=== PATIENT | female | born 1975 | race Caucasian/White ===

== ENCOUNTER 2017-02-08 15:56 | Emergency (ER) | payer OTHER ==
[~2017-02-08] VITALS: Ht 167.6 cm; Wt 121.9 kg
[~2017-02-08 15:56] MED LIST: ALPR-475 PO; COLE1TAB2 PO; MAGN84TA6 PO; METO25TA91 PO; [UNRECOGNIZED DRUG - REMARK]
[2017-02-08 15:59] VITALS: BP 142/90
[2017-02-08] MEDS ORDERED: LIDOCAINE 1%-EPI 1:100K, 20ML SQ ONE (16:30)
[2017-02-08] MEDS ORDERED: LIDOCAINE 1%-EPI 1:100K, 20ML ONE (16:32)
== END 2017-02-08 17:32 | disposition home or self-care (01) ==
LOC: ED 17:06
DX: L05.01 Pilonidal cyst with abscess (principal); Z90.49 Acquired absence of other specified parts of digestive tract; Z88.6 Allergy status to analgesic agent; Z88.8 Allergy status to other drugs, medicaments and biological substances; Z87.891 Personal history of nicotine dependence
CPT/HCPCS: 10080; 99284

== ENCOUNTER 2017-04-27 11:38 | Emergency (ER) | payer OTHER ==
[~2017-04-27] VITALS: Ht 167.6 cm; Wt 118.1 kg
[2017-04-27] MEDS ORDERED: SODIUM CHLORIDE 0.9% 1,000 ML IV ONE (12:49)
[2017-04-27] MEDS ORDERED: ONDANSETRON 2MG/ML, 2ML IVPush ONE (13:00)
[2017-04-27] MEDS ORDERED: SODIUM CHLORIDE FLUSH 10ML SYR IVF ONE (13:00)
[2017-04-27] MEDS ORDERED: HYDROmorphone 1 MG/ML, 1ML IVPush PRN (13:00)
[2017-04-27] MEDS ORDERED: FAMOTIDINE 20 MG/2 ML IVP ONE (13:00)
[2017-04-27] MEDS ORDERED: SODIUM CHLORIDE 0.9% 1,000ML IVBOLUS ONE (13:00)
[2017-04-27] MEDS ORDERED: HYDROmorphone 1 MG/ML, 1ML ONE (13:04)
[2017-04-27] MEDS ORDERED: ONDANSETRON 2MG/ML, 2ML ONE (13:05)
[2017-04-27] MEDS ORDERED: FAMOTIDINE 20 MG/2 ML ONE (13:05)
[2017-04-27 13:12] LABS: ASPARTATE AMINO TRANSFERASE 13 U/L (15-37); BLOOD UREA NITROGEN 13 mg/dL (7-18)
[2017-04-27] MEDS ORDERED: PROMETHAZINE 25 MG/ML, 1ML ONE (14:02)
[2017-04-27] MEDS ORDERED: PROMETHAZINE 25 MG/ML, 1ML IM ONE (14:30)
[2017-04-27 15:36] VITALS: BP 114/58
== END 2017-04-27 15:39 | disposition home or self-care (01) ==
LOC: ED 14:56
DX: A08.4 Viral intestinal infection, unspecified (principal); Z87.891 Personal history of nicotine dependence; Z90.49 Acquired absence of other specified parts of digestive tract
CPT/HCPCS: 36415; 74022; 80053; 81001; 83690; 84703; 85025; 87086; 93005; 96361; 96372; 96374; 96375; 99285; J1170; J2405; J2550; J7030; S0028

== ENCOUNTER → 2018-03-21 | Outpatient (CLI) | payer OTHER ==
[~2018-03-21] MED LIST changes: +MULT-516 PO
== END | disposition home or self-care (01) ==
LOC: STAR 08:06
PROVIDERS: ATTEND Internal Medicine
DX: Z02.9 Encounter for administrative examinations, unspecified (principal)

== ENCOUNTER 2018-03-28 10:25 | Day surgery (SDC) | payer OTHER ==
[~2018-03-28] VITALS: Ht 167.6 cm; Wt 107.0 kg
[2018-03-28] MEDS ORDERED: LACTATED RINGERS 1,000 ML IV SCH (10:43)
[2018-03-28 11:05] LABS: HCG UR SG 1.032 (1.003-1.030)
[2018-03-28 11:10] VITALS: BP 112/79
[2018-03-28] MEDS ORDERED: FENTANYL PF 100 MCG/2ML ONE ×2 (13:16→13:30)
[2018-03-28] MEDS ORDERED: ONDANSETRON ODT 8 MG ONE (13:17)
[2018-03-28] MEDS ORDERED: MIDAZOLAM 1 MG/ML, 2ML ONE ×2 (13:17→13:30)
[2018-03-28] MEDS ORDERED: PROPOFOL 50 ML ONE (13:24)
[2018-03-28] MEDS ORDERED: CEFAZOLIN 1,000 MG ONE ×2 (13:42)
[2018-03-28] MEDS ORDERED: hydrALAzine 20 MG/ML, 1ML IV PRN (14:00)
[2018-03-28] MEDS ORDERED: LABETALOL 5MG/ML, 20ML IV PRN (14:00)
[2018-03-28] MEDS ORDERED: MEPERIDINE/PF 25MG/0.5ML IVPush PRN (14:00)
[2018-03-28] MEDS ORDERED: OXYcodone 5 MG/5 ML ORAL.SOL UDC PO PRN (14:00)
[2018-03-28] MEDS ORDERED: PROMETHAZINE 25 MG/ML, 1ML IV PRN (14:00)
[2018-03-28] MEDS ORDERED: ACETAMINOPHEN 325 MG TABLET PO PRN (14:00)
[2018-03-28] MEDS ORDERED: MORPHINE SULFATE 4 MG/ML, 1ML IVPush PRN (14:00)
[2018-03-28] MEDS ORDERED: LORazepam 2 MG/ML, 1ML IVPush PRN (14:00)
[2018-03-28] MEDS ORDERED: FENTANYL PF 100 MCG/2ML IV PRN (14:00)
== END 2018-03-28 15:00 ==
LOC: OUT 10:25
PROVIDERS: ATTEND Internal Medicine
DX: K57.30 Diverticulosis of large intestine without perforation or abscess without bleeding (principal); K64.4 Residual hemorrhoidal skin tags; K62.89 Other specified diseases of anus and rectum; F42.9 Obsessive-compulsive disorder, unspecified; K20.0 Eosinophilic esophagitis; E66.9 Obesity, unspecified; Z88.6 Allergy status to analgesic agent; Z88.8 Allergy status to other drugs, medicaments and biological substances; Z87.891 Personal history of nicotine dependence; Z98.890 Other specified postprocedural states
CPT/HCPCS: 45341; 81025; J0690; J2250; J2704; J3010; J7120

== ENCOUNTER 2018-05-22 06:53 | Emergency (ER) | payer OTHER ==
[~2018-05-22] VITALS: Ht 167.6 cm; Wt 109.6 kg
[2018-05-22] MEDS ORDERED: KETOROLAC 30 MG/1 ML IM ONE (07:30)
[2018-05-22] MEDS ORDERED: DIAZEPAM 5 MG TABLET PO ONE (07:30)
[2018-05-22] MEDS ORDERED: DIAZEPAM 5 MG TABLET ONE (07:44)
[2018-05-22] MEDS ORDERED: KETOROLAC 30 MG/1 ML ONE (07:44)
[2018-05-22] MEDS ORDERED: ONDANSETRON ODT 4 MG PO ONE (09:00)
[2018-05-22] MEDS ORDERED: HYDROmorphone 2 MG/ML, 1ML ONE (09:07)
[2018-05-22] MEDS ORDERED: CYCLOBENZAPRINE 10 MG TABLET ONE (09:07)
[2018-05-22] MEDS ORDERED: ONDANSETRON ODT 4 MG ONE (09:07)
[2018-05-22] MEDS: CYCLOBENZAPRINE 10 MG TABLET PO SCH ×2 (09:20→10:14)
[2018-05-22 10:15] VITALS: BP 125/73
[2018-05-22] MEDS ORDERED: HYDROmorphone 2 MG/ML, 1ML IM ONE (13:00)
== END 2018-05-22 10:17 | disposition home or self-care (01) ==
LOC: ED 07:45
DX: S39.012A Strain of muscle, fascia and tendon of lower back, initial encounter (principal); W01.0XXA Fall on same level from slipping, tripping and stumbling without subsequent striking against object, initial encounter; Y93.01 Activity, walking, marching and hiking; Y99.8 Other external cause status; Y92.89 Other specified places as the place of occurrence of the external cause
CPT/HCPCS: 72110; 96372; 99284; J1170; J1885; Q0162

== ENCOUNTER 2019-01-27 14:59 | Emergency (ER) | payer OTHER ==
[~2019-01-27] VITALS: Ht 167.6 cm; Wt 118.7 kg
[2019-01-27 15:08] VITALS: BP 134/94
[2019-01-27] MEDS ORDERED: HYDROcodone/APAP 5/325 TABLET PO PRN (15:30)
[2019-01-27] MEDS ORDERED: HYDROcodone/APAP 5/325 TABLET ONE (15:45)
== END 2019-01-27 16:48 | disposition home or self-care (01) ==
LOC: ED 15:26
DX: S63.522A Sprain of radiocarpal joint of left wrist, initial encounter (principal); S50.02XA Contusion of left elbow, initial encounter; S70.02XA Contusion of left hip, initial encounter; W01.0XXA Fall on same level from slipping, tripping and stumbling without subsequent striking against object, initial encounter; Y93.89 Activity, other specified; Y92.828 Other wilderness area as the place of occurrence of the external cause; Y99.8 Other external cause status
CPT/HCPCS: 29125; 99283

== ENCOUNTER → 2019-01-29 | Outpatient (CLI) | payer OTHER | END | disposition home or self-care (01) | LOC: CFH 15:03 | PROVIDERS: ATTEND Physician Assistant Surgical | DX: M48.061 Spinal stenosis, lumbar region without neurogenic claudication (principal); M48.07 Spinal stenosis, lumbosacral region; M47.817 Spondylosis without myelopathy or radiculopathy, lumbosacral region | CPT/HCPCS: 72148 ==

== ENCOUNTER 2019-03-26 13:33 | Emergency (ER) | payer OTHER ==
[~2019-03-26] VITALS: Ht 167.6 cm; Wt 120.2 kg
[2019-03-26 13:47] VITALS: BP 140/84
[2019-03-26] MEDS ORDERED: OXYcodone/APAP 5/325MG TABLET PO ONE (14:30)
[2019-03-26] MEDS ORDERED: KETOROLAC 30 MG/1 ML IM ONE (14:30)
[2019-03-26] MEDS ORDERED: OXYcodone/APAP 5/325MG TABLET ONE (14:33)
[2019-03-26] MEDS ORDERED: KETOROLAC 30 MG/1 ML ONE ×2 (14:33→14:34)
== END 2019-03-26 15:54 | disposition home or self-care (01) ==
LOC: ED 15:47
DX: S60.211A Contusion of right wrist, initial encounter (principal); W19.XXXA Unspecified fall, initial encounter; Y93.89 Activity, other specified; Y92.89 Other specified places as the place of occurrence of the external cause; Y99.8 Other external cause status
CPT/HCPCS: 29125; 73110; 73130; 96372; 99283; J1885

== ENCOUNTER 2019-09-04 08:30 | Emergency (ER) | payer OTHER ==
[~2019-09-04] VITALS: Ht 167.6 cm; Wt 117.3 kg
[~2019-09-04 08:30] MED LIST changes: -ALPR-475 PO; +ALPR0.5T7 PO
--- NOTE | 2019-09-04 08:49 | NUR ---
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
--- NOTE | 2019-09-04 08:50 | NUR ---
44 y/o FEMALE PRESENTS TO ED WITH C/O ALLERGIC REACTION. PER PT "I STARTED HAVING A REACTION ABOUT 1 AM . I TOOK 25MG OF BENADRYL. I TOOK 25 MG MORE AT 0815. IT HAS ONLY HAPPENED THREE TIMES. THIS TIME IT NORA FEELS LIKE IT IS IN MY THROAT." PT IN NO ACUTE DISTRESS. PT NOT SHORT OF BREATH WHEN SPEAKING TO RN. PT IS SPEAKING IN FULL SENTENCES. NO C/O N/V/D, TRAUMA, SYNCOPE, CP. PT PLACED ON CONT PULSE OX,NIBP.
--- NOTE | 2019-09-04 09:23 | NUR ---
PIV ESTABLISHED LABS OBTAINED. PT TOLERATED WITH NO COMPLICATIONS.
[2019-09-04] MEDS ORDERED: FAMOTIDINE 20 MG/2 ML ONE (09:26)
[2019-09-04] MEDS ORDERED: methylPREDNISolone SOD SUCC 125 MG/2 ML ONE (09:26)
[2019-09-04] MEDS ORDERED: EPINEPHRINE 1 MG/ML, 1ML ONE (09:26)
[2019-09-04] MEDS ORDERED: methylPREDNISolone SOD SUCC 125 MG/2 ML IVPush ONE (09:30)
[2019-09-04] MEDS ORDERED: SODIUM CHLORIDE FLUSH 10ML SYR IVF ONE (09:30)
[2019-09-04] MEDS ORDERED: FAMOTIDINE 20 MG/2 ML IVPush ONE (09:30)
[2019-09-04] MEDS ORDERED: EPINEPHRINE 1 MG/ML, 1ML SQ ONE (09:30)
[2019-09-04 09:50] VITALS: BP 133/81
--- NOTE | 2019-09-04 09:53 | NUR ---
BEDSIDE REPORT TO CELSA BALDERAS.
== END 2019-09-04 11:10 | disposition home or self-care (01) ==
LOC: ED 10:08
DX: T78.49XA Other allergy, initial encounter (principal); X58.XXXA Exposure to other specified factors, initial encounter
CPT/HCPCS: 96372; 96374; 96375; 99283; J0171; J2930; J3490

== ENCOUNTER 2019-10-29 15:32 | Emergency (ER) | payer OTHER ==
[~2019-10-29] VITALS: Ht 170.2 cm; Wt 118.1 kg
[2019-10-29 18:57] VITALS: BP 135/91
--- NOTE | 2019-10-29 19:00 | NUR ---
PT D/C BY EDPA FROM ED. Patient given discharge instructions and they have confirmed that they understand the instructions. Patient ambulatory with steady gait. Pt left with Rx, d/c paperwork, and all personal belongings.
== END 2019-10-29 19:03 | disposition home or self-care (01) ==
LOC: ED 18:52
DX: T78.40XA Allergy, unspecified, initial encounter (principal); Z87.11 Personal history of peptic ulcer disease; Z87.19 Personal history of other diseases of the digestive system; Z90.49 Acquired absence of other specified parts of digestive tract; X58.XXXA Exposure to other specified factors, initial encounter
CPT/HCPCS: 99283

== ENCOUNTER 2019-12-30 22:28 | Emergency (ER) | payer OTHER ==
[~2019-12-30] VITALS: Ht 170.2 cm; Wt 118.6 kg
[2019-12-30] MEDS ORDERED: methylPREDNISolone SOD SUCC 40 MG/ML ONE (23:13)
[2019-12-30] MEDS ORDERED: FAMOTIDINE 20 MG/2 ML ONE (23:13)
[2019-12-30] MEDS ORDERED: DIPHENHYDRAMINE 50 MG/ML, 1ML ONE (23:13)
[2019-12-30] MEDS ORDERED: methylPREDNISolone SOD SUCC 125 MG/2 ML IVPush ONE (23:30)
[2019-12-30] MEDS ORDERED: FAMOTIDINE 20 MG/2 ML IVPush ONE (23:30)
[2019-12-30] MEDS ORDERED: DIPHENHYDRAMINE 50 MG/ML, 1ML IVPush ONE (23:30)
--- NOTE | 2019-12-30 23:45 | NUR ---
RN to bedside, patient has already been assessed by provider and intravenous access was initiated by another RN. RN returned with medications. Patient agreeable. Medications adminstered, patient reported some feeling of nausea but no emesis at this time. Room lights were dimmed, door was closed to reduce stimulation. Patient provided with call light and educated electronic plotting system operator light system. Patient vitals remain within normal limits. Awaiting response to medications.
[2019-12-30 23:55] VITALS: BP 142/81
--- NOTE | 2019-12-31 00:27 | NUR ---
RN to bedside to update vitals, vital signs within normal limits (see vital signs flowsheet) patient reports improved swelling, feels better. Awaiting recheck from provider for disposition
== END 2019-12-31 01:28 ==
LOC: ED 12-31 01:22
DX: T78.3XXA Angioneurotic edema, initial encounter (principal); Z90.49 Acquired absence of other specified parts of digestive tract; Z90.89 Acquired absence of other organs; Z87.11 Personal history of peptic ulcer disease
CPT/HCPCS: 96374; 96375; 99284; J1200; J3490

== ENCOUNTER 2020-01-13 11:06 | Emergency (ER) | payer OTHER ==
[~2020-01-13] VITALS: Ht 170.2 cm; Wt 119.5 kg
[2020-01-13 11:12] VITALS: BP 179/103
[2020-01-13] MEDS ORDERED: FAMOTIDINE 20 MG TABLET ONE (11:47)
[2020-01-13] MEDS ORDERED: FAMOTIDINE 20 MG TABLET PO ONE (12:00)
== END 2020-01-13 12:23 | disposition home or self-care (01) ==
LOC: ED 12:15
DX: T78.40XA Allergy, unspecified, initial encounter (principal); Z90.49 Acquired absence of other specified parts of digestive tract; X58.XXXA Exposure to other specified factors, initial encounter
CPT/HCPCS: 99283; J7512

== ENCOUNTER 2020-04-28 01:50 | Emergency (ER) | payer OTHER ==
[~2020-04-28] VITALS: Ht 167.6 cm; Wt 120.0 kg
[2020-04-28] MEDS ORDERED: FAMOTIDINE 20 MG TABLET ONE (02:16)
[2020-04-28] MEDS ORDERED: EPINEPHRINE 1 MG/ML, 1ML ONE (02:16)
[2020-04-28] MEDS ORDERED: DIPHENHYDRAMINE 25 MG CAPSULE ONE (02:17)
[2020-04-28] MEDS ORDERED: LORazepam 1MG TABLET ONE (02:17)
[2020-04-28] MEDS ORDERED: LORazepam 1MG TABLET PO ONE (02:30)
[2020-04-28] MEDS ORDERED: DIPHENHYDRAMINE 25 MG CAPSULE PO ONE (02:30)
[2020-04-28] MEDS ORDERED: FAMOTIDINE 20 MG TABLET PO ONE (02:30)
[2020-04-28] MEDS ORDERED: EPINEPHRINE 1 MG/ML, 1ML SQ ONE (02:30)
--- NOTE | 2020-04-28 02:34 | NUR ---
PT AWOKE IN THE NIGHT WITH SWELLING TO THROAT AND MOUTH. PT STATED SHE HAS MULTIPLE FOOD ALLERGIES. PT ATTACHED TO ALL MONITORS AND MEDICATED FOR ALLERGIC REACTION PER EMAR. WILL MONITOR SYMPTOMS OF AIRWAY SWELLING. PT ANXIOUS AND PROVIDED REASSURANCE.
[2020-04-28 03:22] VITALS: BP 119/65
--- NOTE | 2020-04-28 03:22 | NUR ---
PT STATES IT STILL FEELS 'TIGHT' IN HER THROAT BUT SHE SAYS SWALLOWING IS EASIER.
--- NOTE | 2020-04-28 04:11 | NUR ---
PT REPORTS FEELING MUCH BETTER AND REQUESTING DISCHARGE. DISCUSSED DC INSTRUCTIONS WITH PT AND PT AMBULATED TO DC DESK.
== END 2020-04-28 04:13 | disposition home or self-care (01) ==
LOC: ED 04:12
DX: T78.1XXA Other adverse food reactions, not elsewhere classified, initial encounter (principal); T78.3XXA Angioneurotic edema, initial encounter; R00.0 Tachycardia, unspecified; F17.290 Nicotine dependence, other tobacco product, uncomplicated; E66.01 Morbid (severe) obesity due to excess calories; Z68.41 Body mass index [BMI] 40.0-44.9, adult; Z87.11 Personal history of peptic ulcer disease; Z90.49 Acquired absence of other specified parts of digestive tract; Z90.89 Acquired absence of other organs
CPT/HCPCS: 96372; 99284; 99406; J0171; J7512; Q0163

== ENCOUNTER 2020-05-10 20:26 | Emergency (ER) | payer OTHER ==
[~2020-05-10] VITALS: Ht 167.6 cm; Wt 121.3 kg
[2020-05-10] MEDS ORDERED: MAALOX/HYOSCYAMINE/LIDOCAINE 45 ML BTL ONE (20:48)
--- NOTE | 2020-05-10 20:54 | NUR ---
PT REPORT SPASMS IN HER ESOPH. HAPPENED LAST AND SHE SAID SHE WAS GIVEN A GI COCKTAIL AND IT WENT AWAY. PT PROVIDED GI COCKTAIL. WILL RECHECK IF IT WORKED.
[2020-05-10] MEDS ORDERED: MAALOX/HYOSCYAMINE/LIDOCAINE 45 ML BTL PO ONE (21:00)
[2020-05-10] MEDS ORDERED: LORazepam 2 MG/ML, 1ML ONE (21:16)
[2020-05-10] MEDS ORDERED: LORazepam 2 MG/ML, 1ML IM ONE (21:30)
--- NOTE | 2020-05-10 21:46 | NUR ---
PT REPORTS GI COCKTAIL DID NOT WORK. PT MEDICATED WITH ATIVAN
[2020-05-10] MEDS ORDERED: FAMOTIDINE 20 MG TABLET ONE (22:13)
[2020-05-10] MEDS ORDERED: DIPHENHYDRAMINE 25 MG CAPSULE ONE (22:13)
[2020-05-10] MEDS ORDERED: DIPHENHYDRAMINE 25 MG CAPSULE PO ONE (22:30)
[2020-05-10] MEDS ORDERED: FAMOTIDINE 20 MG TABLET PO ONE (22:30)
[2020-05-11] MEDS ORDERED: KETOROLAC 30 MG/1 ML IM ONE
[2020-05-11] MEDS ORDERED: KETOROLAC 60 MG/2 ML ONE
[2020-05-11 00:04] VITALS: BP 146/88
--- NOTE | 2020-05-11 00:51 | NUR ---
PT DENIED ALLERGY TO TORDOL AND NSAID
== END 2020-05-11 00:55 | disposition home or self-care (01) ==
LOC: ED 21:25
DX: K21.0 Gastro-esophageal reflux disease with esophagitis (principal); R94.31 Abnormal electrocardiogram [ECG] [EKG]; Z90.49 Acquired absence of other specified parts of digestive tract; Z90.89 Acquired absence of other organs; Z87.11 Personal history of peptic ulcer disease
CPT/HCPCS: 71045; 93005; 96372; 99284; J1885; J2060; Q0163

== ENCOUNTER 2020-09-08 20:08 | Emergency (ER) | payer OTHER ==
[~2020-09-08] VITALS: Ht 167.6 cm; Wt 126.0 kg
[2020-09-08 20:10] VITALS: BP 188/119
[2020-09-08] MEDS ORDERED: DIAZEPAM 5 MG TABLET PO ONE (20:30)
[2020-09-08] MEDS ORDERED: HYDROcodone/APAP 5/325 TABLET PO ONE (20:30)
[2020-09-08] MEDS ORDERED: HYDROcodone/APAP 5/325 TABLET ONE (20:55)
[2020-09-08] MEDS ORDERED: DIAZEPAM 5 MG TABLET ONE (20:55)
--- NOTE | 2020-09-08 20:59 | NUR ---
break rn - pt resting in koroma bed, pt a/o x4. pt medicated per emar
--- NOTE | 2020-09-08 20:59 | NUR ---
report of pt from terry osborne and assuming care of pt at this time.
--- NOTE | 2020-09-08 22:48 | NUR ---
PT D/C WITH D/C SUMMARY AND SCRIPTS. ALL QUESTIONS ANSWERED. PT AMBULATES TO REGISTRATION DESK WITH STEADY GAIT FOR D/C HOME. PT VS OBTAINED PRIOR TO D/C AND DISCUSSED WITH DR BRADEN PRIOR TO PT D/C. PT DENIES ANY OTHER NEEDS PERTAINING TO THIS VISIT.
== END 2020-09-08 22:52 | disposition home or self-care (01) ==
LOC: ED 21:14
DX: S39.012A Strain of muscle, fascia and tendon of lower back, initial encounter (principal); R00.0 Tachycardia, unspecified; K21.9 Gastro-esophageal reflux disease without esophagitis; Z90.49 Acquired absence of other specified parts of digestive tract; Z90.89 Acquired absence of other organs; Z87.11 Personal history of peptic ulcer disease; W18.30XA Fall on same level, unspecified, initial encounter; Y93.89 Activity, other specified; Y92.89 Other specified places as the place of occurrence of the external cause; Y99.8 Other external cause status
CPT/HCPCS: 72110; 99283

== ENCOUNTER 2020-10-27 09:48 | Emergency (ER) | payer OTHER ==
[~2020-10-27] VITALS: Ht 167.6 cm; Wt 127.7 kg
--- NOTE | 2020-10-27 10:08 | NUR ---
PT PRESENTS TO ED WITH SENSATION OF LUMP IN THROAT. DENIES PAIN. HX OF ANAPHYLAXIS, PT DENIES TROUBLE BREATHING, NO SWELLING IN TONGUE OR FACE, IN PAST TIMES OF ALLERGIC RXN. PT DENIES TAKING HER OMEPRAZOLE LAST NIGHT. DIFFICULTY GETTING IN TO SEE GI. SIDE RAILS UP ,CALL LIGHT IN REACH. AWAITING ORDERS.
[2020-10-27] MEDS ORDERED: FAMOTIDINE 20 MG TABLET ONE (10:14)
[2020-10-27] MEDS ORDERED: EPINEPHRINE 1 MG/ML, 1ML ONE (10:14)
[2020-10-27] MEDS ORDERED: DIPHENHYDRAMINE 25 MG CAPSULE ONE (10:15)
--- NOTE | 2020-10-27 10:19 | NUR ---
CALL PHARMACY TO VERIFY EPI DOSE WITH 1:1000 CONCENTRATION. DOSE VERIFIED BY
[2020-10-27] MEDS ORDERED: FAMOTIDINE 20 MG TABLET PO ONE (10:30)
[2020-10-27] MEDS ORDERED: EPINEPHRINE 1 MG/ML, 1ML SQ ONE (10:30)
[2020-10-27] MEDS ORDERED: DIPHENHYDRAMINE 25 MG CAPSULE PO ONE (10:30)
--- NOTE | 2020-10-27 10:34 | NUR ---
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 PT MEDICATED PER EMAR. NOW OBSERVING. NAD NOTED AT THIS TIME. PT REMAINS ANXIOUS, BUT COOPERATIVE. SIDE RAILS UP, CALL LIGHT IN REACH.
[2020-10-27 11:58] VITALS: BP 123/70
== END 2020-10-27 12:00 | disposition home or self-care (01) ==
LOC: ED 11:48
DX: K21.00 Gastro-esophageal reflux disease with esophagitis, without bleeding (principal); T78.3XXA Angioneurotic edema, initial encounter; E66.01 Morbid (severe) obesity due to excess calories; Z90.89 Acquired absence of other organs; Z87.11 Personal history of peptic ulcer disease; Z90.49 Acquired absence of other specified parts of digestive tract; Z68.42 Body mass index [BMI] 45.0-49.9, adult
CPT/HCPCS: 96372; 99284; J0171; J7512; Q0163

== ENCOUNTER 2021-01-15 08:45 | Emergency (ER) | payer OTHER ==
[~2021-01-15] VITALS: Ht 167.6 cm; Wt 126.0 kg
--- NOTE | 2021-01-15 09:03 | NUR ---
PT AMBULATORY TO ROOM. PT WENT TO BR, WAS NOT ABLE TO OBTAIN URINE SAMPLE. PT BACK TO ROOM, CHANGED INTO GOWN. PA AT BS
[2021-01-15] MEDS ORDERED: FAMOTIDINE 20 MG/2 ML ONE (09:23)
[2021-01-15] MEDS ORDERED: ONDANSETRON 2MG/ML, 2ML ONE (09:23)
[2021-01-15 09:26] LABS: BASOPHILS % (AUTO) 1 % (0-1); EOSINOPHILS % (AUTO) 5 % (1-7); LYMPHOCYTES % (AUTO) 23 % (22-44); MEAN CORPUSCULAR HEMOGLOBIN 30.4 pg (27.0-34.8); MEAN CORPUSCULAR HGB CONC 34.4 g/dL (32.4-35.8); MEAN PLATELET VOLUME 9.3 fL (7.4-10.4); MONOCYTES % (AUTO) 5 % (2-9); NEUTROPHILS % (AUTO) 66 % (42-75); PLATELET COUNT 328 x10^3/uL (130-400); RED CELL DISTRIBUTION WIDTH 13.4 % (9.6-15.2)
[2021-01-15 09:28] LABS: MD NO
[2021-01-15] MEDS ORDERED: SODIUM CHLORIDE 0.9% 1,000ML IVBOLUS ONE (09:30)
[2021-01-15] MEDS ORDERED: ONDANSETRON 2MG/ML, 2ML IVPush ONE (09:30)
[2021-01-15] MEDS ORDERED: FAMOTIDINE 20 MG/2 ML IVPush ONE (09:30)
[2021-01-15 09:38] LABS: ALANINE AMINOTRANSFERASE 16 U/L (12-78); ALBUMIN 4.3 g/dL (3.4-5.0); ANION GAP 6 mmol/L (5-15); CALCIUM 9.8 mg/dL (8.5-10.1); CHLORIDE 109 mmol/L (98-107); CREATININE 0.87 mg/dL (0.55-1.02)
[2021-01-15 09:43] LABS: ALKALINE PHOSPHATASE 96 U/L (45-117); BILIRUBIN,TOTAL 0.4 mg/dL (0.2-1.0); TOTAL PROTEIN 8.3 g/dL (6.4-8.2)
[2021-01-15] MEDS ORDERED: PROMETHAZINE 25 MG/ML, 1ML ONE (09:49)
[2021-01-15 09:52] LABS: MICROSCOPIC NOT IND
--- NOTE | 2021-01-15 09:55 | NUR ---
PT SITTING ON GURNEY, EMESIS BAG GIVEN D/T DRY HEAVING. NOTIFIED PA. MEDICATED PER EMAR.
[2021-01-15] MEDS ORDERED: PROMETHAZINE 25 MG/ML, 1ML IM ONE (10:00)
[2021-01-15] MEDS ORDERED: MAALOX/HYOSCYAMINE/LIDOCAINE 45 ML BTL PO ONE (10:00)
--- NOTE | 2021-01-15 10:08 | NUR ---
PT SITTING ON GURNEY. STATES MEDICATION HAS HELPED AND NO MORE DRY HEAVING. NO NEEDS AT THIS TIME. CALL LIGHT WITHIN REACH.
[2021-01-15 10:12] VITALS: BP 139/93
--- NOTE | 2021-01-15 10:44 | NUR ---
Patient given discharge instructions and they have confirmed that they understand the instructions. Patient ambulatory with steady gait.
== END 2021-01-15 10:46 | disposition home or self-care (01) ==
LOC: ED 08:55
DX: K21.9 Gastro-esophageal reflux disease without esophagitis (principal); K52.9 Noninfective gastroenteritis and colitis, unspecified; R11.0 Nausea; Z90.49 Acquired absence of other specified parts of digestive tract
CPT/HCPCS: 36415; 80053; 81003; 84703; 85025; 93005; 96361; 96372; 96374; 96375; 99284; J2405; J2550; J7030

== ENCOUNTER 2021-03-19 14:43 | Emergency (ER) | payer OTHER ==
[~2021-03-19] VITALS: Ht 167.6 cm; Wt 130.4 kg
[2021-03-19 15:17] LABS: BASOPHILS % (AUTO) 1 % (0-1); EOSINOPHILS % (AUTO) 5 % (1-7); LYMPHOCYTES % (AUTO) 24 % (22-44); MEAN CORPUSCULAR HEMOGLOBIN 31.2 pg (27.0-34.8); MEAN CORPUSCULAR HGB CONC 34.4 g/dL (32.4-35.8); MEAN PLATELET VOLUME 8.9 fL (7.4-10.4); MONOCYTES % (AUTO) 9 % (2-9); NEUTROPHILS % (AUTO) 62 % (42-75); PLATELET COUNT 294 x10^3/uL (130-400); RED BLOOD COUNT 4.43 x10^6/uL (3.82-5.3); RED CELL DISTRIBUTION WIDTH 14.9 % (9.6-15.2)
[2021-03-19 15:18] LABS: MD NO
[2021-03-19 15:31] LABS: ALBUMIN 3.8 g/dL (3.4-5.0); ANION GAP 5 mmol/L (5-15); CALCIUM 9.2 mg/dL (8.5-10.1); CHLORIDE 105 mmol/L (98-107)
--- NOTE | 2021-03-19 15:35 | NUR ---
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
[2021-03-19 15:43] LABS: ALANINE AMINOTRANSFERASE 30 U/L (12-78); ALKALINE PHOSPHATASE 73 U/L (45-117); BILIRUBIN,TOTAL 0.3 mg/dL (0.2-1.0); CREATININE 0.89 mg/dL (0.55-1.02); FREE T4 (FREE THYROXINE) 0.98 ng/dL (0.76-1.46); TOTAL PROTEIN 7.6 g/dL (6.4-8.2); TROPONIN I < 0.015 ng/mL (0.000-0.045)
[2021-03-19 17:35] VITALS: BP 143/88
== END 2021-03-19 17:40 | disposition home or self-care (01) ==
LOC: ED 15:18
DX: R00.2 Palpitations (principal); R07.9 Chest pain, unspecified; Z87.891 Personal history of nicotine dependence
CPT/HCPCS: 36415; 71045; 80053; 84439; 84443; 84484; 85025; 93005; 99285

== ENCOUNTER 2021-03-28 08:07 | Emergency (ER) | payer OTHER ==
[~2021-03-28] VITALS: Ht 167.6 cm; Wt 129.0 kg
[2021-03-28] MEDS ORDERED: DIPHENHYDRAMINE 50 MG/ML, 1ML ONE (08:42)
[2021-03-28] MEDS ORDERED: DEXAMETHASONE 4 MG TABLET ONE (08:43)
[2021-03-28] MEDS ORDERED: DIPHENHYDRAMINE 50 MG/ML, 1ML IM ONE (09:00)
[2021-03-28] MEDS ORDERED: DEXAMETHASONE 4 MG TABLET PO ONE (09:00)
[2021-03-28 09:44] VITALS: BP 132/82
--- NOTE | 2021-03-28 09:44 | NUR ---
PT AMBULATES WELL TO BATHROOM AND BACK TO ED ROOM. PT REPORTS SOME RELIEF IN THROAT FROM MEDICATIONS "IT DOESN'T FEEL LIKE I HAVE TO WORK TO BREATHE." NAD NOTED AT THIS TIME. SIDE RAILS UP, CALL LIGHT IN REACH.
== END 2021-03-28 10:47 | disposition home or self-care (01) ==
LOC: ED 10:00
DX: T78.40XA Allergy, unspecified, initial encounter (principal); X58.XXXA Exposure to other specified factors, initial encounter; K21.9 Gastro-esophageal reflux disease without esophagitis; Z90.49 Acquired absence of other specified parts of digestive tract
CPT/HCPCS: 96372; 99283; J1200